=== PATIENT | female | born 1965 | race Asian ===

== ENCOUNTER 2019-12-07 10:16 | Emergency (ER) | payer MEDICAID ==
[~2019-12-07] VITALS: Ht 152.4 cm; Wt 54.4 kg
[2019-12-07 10:28] VITALS: BP 132/76
--- NOTE | 2019-12-07 10:40 | NUR ---
54 YO FEMALE CO BLOOD IN HER URINE THAT STARTED 2 MONTHS AGO AND HAS BEEN ONGOING. PT DENIES ANY N/V/D AND NO PAIN WITH URINATION. PT ALSO STATES THAT SHE GETS HEADACHES ON A REGUALR BASIS. NO PMH AND NO RX
--- NOTE | 2019-12-07 10:47 | NUR ---
ERMD AT BEDSIDE.
--- NOTE | 2019-12-07 11:24 | NUR ---
PT TAKEN TO CT VIA WC
--- NOTE | 2019-12-07 11:29 | NUR ---
LAB AT BEDSIDE
[2019-12-07 12:02] LABS: BASOPHILS % (AUTO) 0.6 % (0.0-2.0); EOSINOPHILS # (AUTO) 0.3 K/uL (0-0.4); EOSINOPHILS % (AUTO) 4.5 % (0.0-4.0); HEMOGLOBIN 13.5 g/dL (12.0-16.0); LYMPHOCYTES # (AUTO) 1.4 K/uL (2.5-16.5); LYMPHOCYTES % (AUTO) 20.2 % (20.5-51.1); MEAN CORPUSCULAR HEMOGLOBIN 31 pg (27-31); MEAN CORPUSCULAR HGB CONC 33 g/dL (33-37); MEAN CORPUSCULAR VOLUME 92.8 fL (80-94); MONOCYTES # (AUTO) 0.5 K/uL (0.8-1.0); MONOCYTES % (AUTO) 7.6 % (1.7-9.3); NEUTROPHILS # (AUTO) 4.5 K/uL (1.8-7.7); NEUTROPHILS % (AUTO) 67.1 % (42.2-75.2); PLATELET COUNT (AUTO) 261 K/uL (140-450); RED BLOOD CELL COUNT(AUTO) 4.42 MIL/uL (4.20-5.40); RED CELL DISTRIBUTION WIDTH 13.3 % (11.6-13.7); WHITE BLOOD COUNT (AUTO) 6.7 K/uL (4.8-10.8)
[2019-12-07 12:18] LABS: APPEARANCE,URINE CLOUDY (CLEAR); BILIRUBIN,URINE NEGATIVE (NEGATIVE); BLOOD, URINE 3+ (NEGATIVE); COLOR,URINE YELLOW (YELLOW); LEUKOCYTE ESTERASE ,URINE 2+ (NEGATIVE); NITRITE, URINE NEGATIVE (NEGATIVE); PH,URINE 6.5 (5.0-9.0); UGLUCOSE NEGATIVE (NEGATIVE)
[2019-12-07 12:38] LABS: RBC,URINE 11-20 (MOD) /HPF (0-5); WBC,URINE 20-60 /HPF (0-5)
[2019-12-07 12:53] LABS: ALBUMIN 3.6 g/dL (3.4-5.0); ANION GAP 9.8 (8-16); CARBON DIOXIDE 29.9 mmol/L (21-32); CREATININE 0.9 mg/dL (0.6-1.3); POTASSIUM 3.7 mmol/L (3.5-5.1); TOTAL BILIRUBIN 0.3 mg/dL (0.0-1.0)
[2019-12-07 13:08] VITALS: BP 132/76
--- NOTE | 2019-12-07 13:09 | NUR ---
Patient discharged with v/s stable. Written and verbal after care instructions given and explained. Patient alert, oriented and verbalized understanding of instructions. Ambulatory with steady gait. All questions addressed prior to discharge. ID band removed. Patient advised to follow up with PMD. Rx of macrobid/ naprosyn given. Patient educated on indication of medication including possible reaction and side effects. Opportunity to ask questions provided and answered.
== END 2019-12-07 13:09 | disposition home or self-care (01) ==
LOC: MED 10:16
DX: N39.0 Urinary tract infection, site not specified (principal); R51 Headache; R03.0 Elevated blood-pressure reading, without diagnosis of hypertension; Z98.890 Other specified postprocedural states
CPT/HCPCS: 36415; 70450; 80053; 81001; 81025; 85025; 87086; 93005; 99285